=== PATIENT | male | born 1990 | race African-American/Black ===

== ENCOUNTER 2016-11-21 06:09 | Emergency (ER) | payer OTHER ==
[~2016-11-21] VITALS: Ht 180.3 cm; Wt 97.7 kg
[2016-11-21] MEDS ORDERED: NAPR500T3 PO (06:30)
[2016-11-21] MEDS ORDERED: TYLE325T5 PO (06:30)
[2016-11-21] MEDS ORDERED: METOCLOPRAMIDE INJ 10MG/2ML VIAL (J2765) IV ONE (07:30)
[2016-11-21] MEDS ORDERED: KETOROLAC 30 MG/ML VIAL (J1885) IV ONE (07:30)
[2016-11-21] MEDS ORDERED: NS 1,000 ML IV ONE (07:30)
--- NOTE | 2016-11-21 08:16 | REP ---
CT Head without contrast HISTORY: Headache COMPARISON: None There is no intraparenchymal hemorrhage, acute infarct, mass or midline shift. The ventricular system is normal in appearance. There is no extra cerebral collection. There is no fracture. The visualized sinuses are clear. IMPRESSION: There is no intracranial lesion. Signed by Moreno Douglass MD 11/21/2016 08:07 A
[2016-11-21 09:00] VITALS: BP 110/58
== END 2016-11-21 09:21 | disposition home or self-care (01) ==
LOC: M ED 06:09
DX: R51 Headache (principal); G91.9 Hydrocephalus, unspecified
CPT/HCPCS: 70450; 96374; 96375; 99283; J1885; J2765

== ENCOUNTER 2017-01-27 06:15 | Emergency (ER) | payer OTHER ==
[~2017-01-27] VITALS: Ht 182.9 cm; Wt 102.3 kg
[~2017-01-27 06:15] MED LIST: NAPR500T3 PO; TYLE325T5 PO
[2017-01-27 06:16] VITALS: BP 138/71
== END 2017-01-27 07:06 | disposition home or self-care (01) ==
LOC: M ED 06:15
DX: J00 Acute nasopharyngitis [common cold] (principal); R51 Headache; G91.9 Hydrocephalus, unspecified

== ENCOUNTER 2017-03-21 06:02 | Emergency (ER) | payer OTHER ==
[2017-03-21 07:17] LABS: CARBOXYHEMOGLOBIN 1.6 % (0.0-1.5)
[2017-03-21] MEDS: MORPHINE 10 MG/ML 1ML VIAL IM ×2 (07:21)
== END 2017-03-21 09:22 | disposition home or self-care (01) ==
LOC: M ED 06:02
DX: G43.909 Migraine, unspecified, not intractable, without status migrainosus (principal)
CPT/HCPCS: 70450

== ENCOUNTER 2017-03-29 15:36 | Emergency (ER) | payer OTHER ==
[2017-03-29] MEDS ORDERED: KETOROLAC 30 MG/ML VIAL (J1885) IV (18:30)
[2017-03-29] MEDS ORDERED: METOCLOPRAMIDE INJ 10MG/2ML VIAL (J2765) IV (18:30)
[2017-03-29] MEDS ORDERED: NS 1,000 ML IV (18:30)
== END 2017-03-29 19:41 | disposition home or self-care (01) ==
LOC: M ED 15:36
DX: G44.209 Tension-type headache, unspecified, not intractable (principal); G91.9 Hydrocephalus, unspecified
CPT/HCPCS: 96374

== ENCOUNTER 2017-04-29 13:15 | Emergency (ER) | payer OTHER | END 2017-04-29 14:15 | disposition left against medical advice (07) | LOC: M ED 13:15 | DX: Z53.29 Procedure and treatment not carried out because of patient's decision for other reasons (principal) ==